=== PATIENT | female | born 1985 | race Caucasian/White ===

== ENCOUNTER 2021-03-12 12:11 | Outpatient (REF) | payer OTHER, SELFPAY ==
[2021-03-12 13:53] LABS: MANUAL DIFF FLAG NO
[2021-03-12 14:05] LABS: Basophils Absolute Auto 0.1 X10*3/uL (0.0-0.2); Basophils Percent Auto 0.7 % (0-2); Eosinophils Absolute Auto 0.1 X10*3/uL (0.0-0.4); Hematocrit 41.4 % (37-47); Imm Gran Abs Auto 0.03 X10*3/uL (0.00-0.03); Imm Gran Pct Auto 0.4 % (0.0-0.4); Lymphocytes Percent Auto 28.6 % (20-40); Mean Corpuscular HGB Conc 33.8 g/dl (31.0-35.0); Mean Corpuscular Hemoglobin 32.6 pg (27.0-33.0); Mean Corpuscular Volume 96.3 fL (80-98); Mean Platelet Volume 10.3 fL (9.4-12.3); Monocytes Absolute Auto 0.4 X10*3/uL (0.1-1.2); Monocytes Percent Auto 6.3 % (2-11); Neutrophils Absolute Auto 4.3 X10*3/uL (2.0-8.3); Platelet Count 291 X10*3/uL (160-400); White Blood Count 6.9 X10*3/uL (4.8-10.8)
[2021-03-12 14:34] LABS: Alanine Aminotransferase 16 U/L (0-31); Anion Gap 17 (12-20); Aspartate Amino Transferase 26 U/L (5-31); Blood Urea Nitrogen 10 mg/dL (9-16); Calcium 9.1 mg/dL (8.4-10.2); Carbon Dioxide 22 mmol/L (22-29); Chloride 107 mmol/L (96-108); Cholesterol 235 mg/dL; Estimated Glomerular Filt Rate > 60; Glucose Fasting 91 mg/dL (60-99); HDL Cholesterol 70 mg/dL; LDL Cholesterol Calculated 149 mg/dl; Potassium 4.8 mmol/L (3.3-5.1); Sodium 141 mmol/L (135-145); Triglycerides 81 mg/dL
[2021-03-12 14:45] LABS: TSH reflex Free T4 0.71 uIU/mL (0.32-4.0)
[2021-03-14 01:56] LABS: Rubeola IgG (Measles) >300.00 AU/mL
== END 2021-03-12 12:12 | disposition home or self-care (01) ==
LOC: HO.HMGCLDS 12:11
PROVIDERS: PCP Internal Medicine; Visit Provider Internal Medicine
DX: Z01.84 Encounter for antibody response examination (principal); I10 Essential (primary) hypertension
CPT/HCPCS: 36415; 80048; 80061; 82306; 84443; 84450; 84460; 85025; 86735; 86762; 86765

== ENCOUNTER 2021-05-18 | Outpatient (REF) | payer OTHER, SELFPAY ==
[2021-05-19 12:20] LABS: Influenza A PCR NEGATIVE (Negative); Influenza B PCR NEGATIVE (Negative); Resp Syncy Virus RNA Qual PCR NEGATIVE (Negative); SARS COV2 PCR INHOUSE POSITIVE (Negative)
== END 2021-05-18 00:01 | disposition home or self-care (01) ==
LOC: HO.LNP
PROVIDERS: Visit Provider Internal Medicine
DX: R43.9 Unspecified disturbances of smell and taste (principal); Z20.822 Contact with and (suspected) exposure to COVID-19
CPT/HCPCS: 0241U